=== PATIENT | male | born 1990 | race Hispanic/Latino ===

== ENCOUNTER 2023-04-07 21:00 | Emergency (ER) | payer SELFPAY ==
[2023-04-07 21:00] VITALS: BMI 40.0
[2023-04-07 21:10] VITALS: BP 139/100
--- NOTE | 2023-04-07 23:48 | ED.GENMED ---
History of Present Illness
General
Chief Complaint: Musculo-Skeletal Complaint
Source: patient
Time Seen by Provider: 04/07/23 23:14
Travel History
Have you had any contact with someone who has COVID-19?: No
Do you have any symptoms of coronavirus? Fever > 100 degrees, chills, cough, shortness of breath, sore throat, loss of taste or smell, muscle aches, or headache?: No
History of Present Illness
History of Present Illness:
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 Patient states he has had difficulty sleeping due to the pain. He initially states that he was lifting some stuff but sort of
stepped weird and had some pain in his back that progressed over some time to radiate down his leg. Does report a little bit of tingling and numbness in the foot. Has been taking Tylenol very occasionally and took Aleve 1 time.
Past History
Past History
ED Past Medical History: None
Phy Exam
Physical Exam
Physical Exam:
CONSTITUTIONAL Vital signs reviewed, Patient alert and oriented to person, place and time. Well-appearing
HEAD atraumatic, normocephalic.
EYES eyelids normal to inspection, Extraocular muscles intact, Conjunctiva normal, Sclera normal.
NECK normal range of motion, Trachea midline, no jugular venous distention.
RESP no respiratory distress
BACK No obvious deformities, no rash, no midline tenderness, pain he reports is over the right SI joint but no focal tenderness or redness
UPPER EXTREMITY Gross Range of motion normal, gross motor strength normal
LOWER EXTREMITY Gross range of motion normal, Gross motor strength normal. Normal distal pulses. Normal gross sensation.
NEURO Speech normal, No focal motor deficits include, [place] coma scale 15, Memory normal, Cranial Nerves intact to screening exam.
SKIN Skin warm, dry, and normal in color.
PSYCHIATRIC Patient oriented to person place and time, Normal affect.
Course
Orders/Labs/Results
Orders:
Orders
04/07/23 23:48
Ketorolac [Toradol] 60 mg IM NOW STA
Prednisone [Deltasone] 50 mg PO NOW STA
04/07/23 23:49
Vital Signs- Treatment ONCE
Frequency: Once
04/08/23 00:14
Vital Signs- Treatment ONCE
Frequency: Once
Vital Signs
Initial and Last Documented VS:
Initial Vital Signs
Temp Pulse Resp BP Pulse Ox
97.7 F 88 19 139/100 97
04/07/23 21:10 04/07/23 21:10 04/07/23 21:10 04/07/23 21:10 04/07/23 21:10
Last Documented Vital Signs
Temp Pulse Resp BP Pulse Ox
97.7 F 88 19 139/100 97
04/07/23 21:10 04/07/23 21:10 04/07/23 21:10 04/07/23 21:10 04/07/23 21:10
MDM/Problems Addressed
MDM/Problems Addressed:
Sciatica
*Pulse Oximetry
Patient hypoxic: no
*Critical Care Note
Total Time (30-74mins, 75-104mins- exclusive of procedures): Not Applicable
Data Reviewed
Source: patient
Prescriptions/Medications Considered But Not Given:
Considered narcotic pain medication but think NSAIDs and steroids may be beneficial
Further Testing Considered But Not Given:
Considered x-rays but no focal bony tenderness
Patient Management
Escalation/DeEscalation of care consider admission/obs:
Outpatient treatment is reasonable with steroids, NSAIDs and follow-up
ED Attending Note
-
Portions of this chart may have been created with voice recognition software.� Occasional wrong word or��sound alike� substitutions may have occurred due to the inherent limitations of voice recognition software.
Discharge Plan
Departure
Patient Disposition: Home (Routine Discharge)
Date of Disposition: 04/08/23
Time of Disposition: 00:16
Patient with high blood pressure during this ER visit?: Yes
Discharge Problem:
Acute lumbar radiculopathy
Instructions: Sciatica
Prescriptions:
New
prednisone 10 mg Tablet
See Rx Instructions .ROUTE .COMPLEX Qty: 45 0RF
Rx Instructions:
Take By Mouth:
50 mg daily x3 days, 40 mg daily x3 days,
30 mg daily x3 days, 20 mg daily x3 days,
10 mg daily x3 days
Referrals:
UNKNOWN - PT DOES,NOT KNOW [Family Provider] -
Activity Restrictions/Additional Instructions:
Utilice ibuprofeno 600 mg cada 6 horas seg�n sea necesario para el dolor. Tambi�n puede usar Tylenol 650 mg cada 6 horas seg�n sea necesario para controlar el dolor. Consulte a camargo m�dico o especialista en columna para realizar un seguimiento si los
s�ntomas persisten angelita los pr�ximos 10 a 14 d�as. Regrese inmediatamente si tiene debilidad en las piernas, entumecimiento, hormigueo, incontinencia de vejiga, incontinencia intestinal, fiebre, dolor que empeora o cualquier otra inquietud.
Interventions
Interventions:
*Risk Screen - Suicide Last Done: 04/07/23 21:10
*General Assessment Last Done: 04/07/23 21:10
*Neglect/Abuse Screening Last Done: 04/07/23 21:10
*ED COVID-19 Vaccine History Last Done: 04/07/23 21:10
ED-Musculoskeletal Assessment Last Done: 04/07/23 22:45
[2023-04-08 00:14] VITALS: BP 123/64
[2023-04-08] MEDS: DELTASONE 50 MG PO (00:18)
[2023-04-08] MEDS: TORADOL 60 MG IM (00:19)
[2023-04-08 00:46] VITALS: BP 118/61
[2023-04-08 00:48] VITALS: BP 118/61
== END 2023-04-08 00:49 | disposition home or self-care (01) ==
LOC: EMR 21:00
PROVIDERS: EMERGENCY PHYSICIAN Emergency Medicine
DX: M54.16 Radiculopathy, lumbar region (principal)
CPT/HCPCS: 99282; 96372

== ENCOUNTER → 2023-04-23 10:26 | Outpatient (REF) | payer OTHER, SELFPAY ==
[2023-04-23 12:07] LABS: % Basophils 0.2 % (0-2); % Eosinophils 0.9 % (0-6); % Immature Granulocytes 0.7 % (0-0.5); % Lymphocytes 29.8 % (20.5-51.1); % Monocytes 9.1 % (1.7-9.3); % Neutrophils 59.3 % (42.2-75.2); Absolute Eosinophils 0.1 10^3/uL (0-0.7); Absolute Immature Granulocytes 0.1 10^3/uL (0-0.05); Absolute Lymphocytes 2.7 10^3/uL (1.2-3.4); Absolute Monocytes 0.8 10^3/uL (0.1-0.6); Absolute Neutrophils 5.4 10^3/uL (1.4-6.5); Hematocrit 46.4 % (39.0-52.0); Hemoglobin 15.6 g/dL (13.0-18.0); Mean Corp Hgb Conc. 33.6 g/dL (33.0-37.0); Mean Corpuscular Hgb 28.4 pg (27.0-31.0); Mean Corpuscular Volume 84.5 fL (80.0-94.0); Mean Platelet Volume 9.8 fL (7.4-10.4); Nucleated Red Blood Cells % 0 % (-); Platelet Count 279 10^3/uL (130-400); Red Blood Cell Count 5.49 10^6/uL (4.70-6.10); Red Cell Dist. Width 12.6 % (11.5-14.5); Reticulocyte Count 1.9 % (0.4-2.8); White Blood Cell Count 9.1 10^3/uL (4.8-10.8)
[2023-04-23 12:48] LABS: ALT (SGPT) 81 U/L (0-50); AST (SGOT) 37 U/L (17-59); Albumin 4.4 g/dl (3.5-5.0); Alkaline Phosphatase 90 U/L (38-126); Blood Urea Nitrogen 18 mg/dl (9-20); Calcium 9.3 mg/dl (8.4-10.2); Carbon Dioxide 30 mmol/L (22-30); Chloride 102 mmol/L (98-107); Glucose 81 mg/dl (70-99); Potassium 4.2 mmol/L (3.5-5.1); Sodium 137 mmol/L (135-145); Total Bilirubin 0.5 mg/dl (0.2-1.3); Total Protein 7.7 g/dl (6.3-8.2); eGFR > 60.00
[2023-04-23 13:58] LABS: Glycohemoglobin (HgbA1c) 5.9 % (4.0-5.6)
== END ==
LOC: REG 10:26
PROVIDERS: ATTENDING PHYSICIAN Internal Medicine
DX: Z13.1 Encounter for screening for diabetes mellitus (principal)
CPT/HCPCS: 36415; 80053; 83036; 85025; 85045

== ENCOUNTER 2023-05-06 10:26 | Emergency (ER) | payer OTHER, SELFPAY ==
[2023-05-06 10:30] VITALS: BP 136/70
--- NOTE | 2023-05-06 11:26 | ED.GENMED ---
History of Present Illness
General
Chief Complaint: Back Pain
Source: patient
Exam Limitations: none
Time Seen by Provider: 05/06/23 11:25
Nursing documentation reviewed up to this point in time: agreed with
Travel History
Have you had any contact with someone who has COVID-19?: No
Do you have any symptoms of coronavirus? Fever > 100 degrees, chills, cough, shortness of breath, sore throat, loss of taste or smell, muscle aches, or headache?: No
History of Present Illness
History of Present Illness:
32-year-old male presents to the ER complaining of right lower back pain. He reports he has had this for about a month. He was seen here about 1 month ago for this. He was diagnosed with back pain and sciatica. Patient complains of right lower
back pain radiating to his right leg he denies any loss of bowel bladder Patient was given a long taper of prednisone at that time. He was prescribed steroids however the past several days pain has worsened. He thinks he may have taken steroids
yesterday he is not sure. He has been taking Tylenol and this has not helped his symptoms. He did go to chiropractor for this and was sent here
Past History
Past History
ED Past Medical History: None
Review of Systems
Review of Systems
Allergies reviewed?: Yes
All Other Systems: ROS reviewed and negative except as documented in HPI and ROS
Constitutional: Reports no symptoms; Denies fever, fatigue or chills
Respiratory: Reports no symptoms
Cardiac: Reports no symptoms
ABD/GI: Reports no symptoms
Musculoskeletal: Reports back pain (Right lower back pain which radiates to right leg )
Neurological: Reports no symptoms; Denies dizzy, headache, weakness or numbness
Phy Exam
General Physical Exam
General Presentation: no apparent distress
General age: appears stated age
General Skin: warm and dry
General Habitus: normal
General Mental: alert
General Hydration: appears well hydrated
Neurological Exam
Neurological Exam: alert, oriented x3 and other (Intact sensation to lower extremities bilaterally normal bilateral dorsiflexion plantarflexion normal sensation intact; negative straight leg raise bilaterally)
[place] Coma Scale
Eye Opening: Spontaneous
Verbal Response: Oriented
Motor Response: Obeys Commands
GCS Total Score: 15
Musculoskeletal Exam
Musculoskeletal Exam: other (Tender in the right paralumbar muscle region and tender over the right sciatic region. Normal inspection to back)
Skin Exam
Skin Exam: normal color and warm/dry
Course
Orders/Labs/Results
Orders:
Orders
05/06/23 11:30
diazePAM [Valium Injection] 5 mg IM NOW STA
05/06/23 11:39
Dexamethasone Sod Phos Pf [Decadron] 10 mg IM NOW STA
05/06/23 11:40
Dexamethasone Pf [Decadron] 10 mg .ROUTE .STK-MED ONE
05/06/23 13:28
HYDROmorphone [Dilaudid] 1 mg IM NOW STA
Lumbar Spine Complete, 4 View [CR Lumbar Spine Comp Min 4 Vw*] Urgent
Comment:
Reason For Exam: pain
Vital Signs
Initial and Last Documented VS:
Initial Vital Signs
Temp Pulse Resp BP Pulse Ox
98.2 F 74 18 136/70 99
05/06/23 10:30 05/06/23 10:30 05/06/23 10:30 05/06/23 10:30 05/06/23 10:30
Last Documented Vital Signs
Temp Pulse Resp BP Pulse Ox
98.2 F 65 14 126/70 98
05/06/23 10:30 05/06/23 14:14 05/06/23 14:14 05/06/23 14:14 05/06/23 14:14
MDM/Problems Addressed
Differential Diagnosis Includes:
Not limited to low back pain, sciatica
MDM/Problems Addressed:
Patient complains of right-sided low back pain which radiates to her back. It is worse with movement twisting turning. He has no bowel or bladder incontinence. He was here April 07 had steroid Dosepak completed that the pain seemed to improve
but is now back. He has a normal neurologic exam. He was given Valium here along with Decadron and 1 shot of narcotic pain medication feeling better. No acute findings on x-ray. Will DC on 50 mg of prednisone for the next 5 days with Valium was
sent to pharmacy will DC with orthopedics need additional imaging however was normal neuro exam patient feels better and is stable for discharge
*Radiology
Radiology exam reviewed: preliminary read by ED provider
*Pulse Oximetry
Patient hypoxic: no
*Critical Care Note
Total Time (30-74mins, 75-104mins- exclusive of procedures): Not Applicable
Data Reviewed
Review of Other/Old Records Reveals: Other (prior ED visit )
Source: patient
ED Attending Note
-
Portions of this chart may have been created with voice recognition software.� Occasional wrong word or��sound alike� substitutions may have occurred due to the inherent limitations of voice recognition software.
Discharge Plan
Departure
Patient Disposition: Home (Routine Discharge)
Date of Disposition: 05/06/23
Time of Disposition: 15:45
Patient with high blood pressure during this ER visit?: Yes
Condition: Fair
Covid-19: Not Applicable
Discharge Problem:
Low back pain, Sciatica
Instructions: Low Back Pain (DC), Sciatica (DC), BLOOD PRESSURE
Prescriptions:
New
prednisone 50 mg tablet
50 mg PO DAILY Qty: 5 0RF
diazepam [Valium] 5 mg tablet
5 mg PO TID PRN (Reason: muscle spasm) Qty: 10 0RF
No Action
prednisone 10 mg Tablet
See Rx Instructions .ROUTE .COMPLEX Qty: 45 0RF
Rx Instructions:
Take By Mouth:
50 mg daily x3 days, 40 mg daily x3 days,
30 mg daily x3 days, 20 mg daily x3 days,
10 mg daily x3 days
Referrals:
Ortiz Nair MD [Active] -
UNKNOWN - PT DOES,NOT KNOW [Family Provider] -
Activity Restrictions/Additional Instructions:
Steroids as directed for the next 5 days. A prescription for Valium was sent to pharmacy take as directed 5 mg every 8 hours as needed. This medication will cause drowsiness. No driving or drinking alcohol while taking medication.
You may also take Tylenol 650 mg every 4-6 hours as needed
Return if any worsening of symptoms if increased pain if loss of bowel or bladder weakness in lower extremities.
Follow-up with your family doctor next 4 days as needed and orthopedics as needed
Interventions
Interventions:
*Risk Screen - Suicide Last Done: 05/06/23 11:16
*General Assessment Last Done: 05/06/23 11:16
*Neglect/Abuse Screening Last Done: 05/06/23 11:16
*ED COVID-19 Vaccine History Last Done: 05/06/23 10:31
ED-Musculoskeletal Assessment Last Done: 05/06/23 11:16
[2023-05-06] MEDS: DECADRON 10 MG IM (11:43)
[2023-05-06] MEDS: VALIUM INJECTION 5 MG IM (11:43)
[2023-05-06] MEDS: DILAUDID 1 MG IM (13:33)
[2023-05-06 14:14] VITALS: BP 126/70
== END 2023-05-06 16:03 | disposition home or self-care (01) ==
LOC: EMR 10:26
PROVIDERS: EMERGENCY PHYSICIAN Emergency Medicine
DX: M54.40 Lumbago with sciatica, unspecified side (principal); R03.0 Elevated blood-pressure reading, without diagnosis of hypertension
CPT/HCPCS: 99284; 96372 ×3; 72110